=== PATIENT | female | born 1955 | race Caucasian/White ===

== ENCOUNTER 2021-01-19 12:05 | Observation (INO) ==
[2021-01-19] MEDS ORDERED: 0.9 % Sodium Chloride 1,000 ML IV ONE (13:33)
[2021-01-19 14:07] LABS: Monocytes % 12.4 %; Red Cell Distribution Width 13.4 % (11.5-14.5)
[2021-01-19 14:09] LABS: Basophils # 0.1 K/mcL (0.0-0.2); Basophils % 0.7 %; Eosinophils # 0.2 K/mcL (0.0-0.6); Eosinophils % 3.2 %; Hematocrit 41.4 % (35.3-44.9); Hemoglobin 13.7 g/dL (11.5-15.4); Immature Granulocytes % 0.3 % (0-4); Immature Platelets 4.8 % (1.1-6.1); Lymphocytes # 1.3 K/mcL (0.6-4.6); Lymphocytes % 18.9 %; Mean Corpuscular HGB Conc 33.1 g/dL (31.6-35.5); Mean Corpuscular Hemoglobin 30.4 pg (28.0-33.3); Mean Platelet Volume 9.9 fL (9.4-12.4); Monocytes # 0.9 K/mcL (0.0-1.3); Platelet Count 106 K/mcL (140-400); Segmented Neutrophils % 64.5 %; White Blood Count 6.9 K/mcL (4.3-11.1)
[2021-01-19 14:14] LABS: Neutrophils # 4.5 K/mcL (1.6-8.9)
[2021-01-19 14:26] LABS: Alanine Aminotransferase 65 Units/L (7-52); Albumin 3.7 g/dL (3.5-5.7); Albumin/Globulin Ratio 1.4 (1.1-2.2); Alkaline Phosphatase 57 Units/L (34-104); Aspartate Amino Transferase 78 Units/L (13-39); BUN/Creatinine Ratio 24 (6-26); Bilirubin,Total 0.9 mg/dL (0.3-1.0); Blood Urea Nitrogen 18 mg/dL (8-23); Calcium 9.2 mg/dL (8.6-10.3); Carbon Dioxide 27 mEq/L (23-29); Chloride 105 mEq/L (98-107); Globulin 2.7 g/dL (2.4-3.5); Glucose 79 mg/dL (70-105); Osmolality,Calculated 289 (280-300); Potassium 3.2 mEq/L (3.5-5.1); Sodium 139 mEq/L (136-145); Total Protein 6.4 g/dL (6.4-8.9); eGFR For African Americans > 60 (> 60); eGFR For Non-African Americans > 60 (> 60)
[2021-01-19] MEDS ORDERED: Ondansetron ODT 4 MG TAB.RAPDIS SL PRN (21:06)
[2021-01-19] MEDS ORDERED: Acetaminophen 325 MG TABLET PO PRN (21:06)
[2021-01-19] MEDS ORDERED: Naloxone 0.4 MG/ML INJ IVP PRN (21:06)
[2021-01-19] MEDS ORDERED: Melatonin 3 MG TABLET PO PRN (21:06)
[2021-01-19] MEDS ORDERED: D5% in Water 1,000 ML IVC PRN (21:11)
[2021-01-19] MEDS ORDERED: *HR* Dextrose 50 % in Water (Vial) 50 ML VIAL IVP PRN (21:11)
[2021-01-19] MEDS ORDERED: Dextrose Gel 15 GM/37.5 ML TUBE PO PRN ×2 (21:11)
[2021-01-19] MEDS ORDERED: Isovue-370 500 ML BOTTLE IVP ONE ×3 (21:17→21:22)
[2021-01-19] MEDS: Insulin LISPRO 300 UNITS/3 ML VIAL SUBQ SCH (22:00)
[2021-01-19] MEDS ORDERED: *HR* LORazepam 2 MG/ML VIAL IVP ONE (22:48)
[2021-01-20] MEDS ORDERED: Cefepime HCl 2,000 MG in Water for inj. (sterile) 20 ML IVP SCH (06:00)
[2021-01-20] MEDS: Doxycycline 100 MG in 0.9 % Sodium Chloride Mini Bag 100 ML IVPB SCH ×2 (06:18→16:38)
[2021-01-20] MEDS: Insulin LISPRO 300 UNITS/3 ML VIAL SUBQ SCH ×3 (09:27→16:41)
[2021-01-20] MEDS: *HR* Heparin 5,000 UNIT/ML VIAL SQ SCH ×3 (09:38→20:36)
[2021-01-20] MEDS ORDERED: Fluconazole 40 MG/ML UDC PO ONE (09:52)
[2021-01-20] MEDS: Nystatin Cream 15 GM TUBE TP SCH ×2 (10:26→20:42)
[2021-01-20] MEDS ORDERED: Potassium Chloride Elixir 20 MEQ/15 ML UDC PO ONE (13:47)
[2021-01-20] MEDS: Cefepime HCl 2,000 MG in Water for inj. (sterile) 20 ML IVP SCH (15:15)
[2021-01-20] MEDS: Budesonide/Formoterol 80/4.5 1 PUFF INH IH SCH ×2 (15:38→20:17)
[2021-01-20 15:58] LABS: Basophils # 0.1 K/mcL (0.0-0.2); Basophils % 0.8 %; Eosinophils # 0.2 K/mcL (0.0-0.6); Eosinophils % 3.4 %; Hematocrit 43.5 % (35.3-44.9); Hemoglobin 14.3 g/dL (11.5-15.4); Immature Granulocytes % 0.5 % (0-4); Immature Platelets 4.3 % (1.1-6.1); Lymphocytes # 1.4 K/mcL (0.6-4.6); Lymphocytes % 22.5 %; Mean Corpuscular HGB Conc 32.9 g/dL (31.6-35.5); Mean Corpuscular Hemoglobin 30.2 pg (28.0-33.3); Mean Corpuscular Volume 91.8 fL (83.0-100.0); Monocytes # 0.8 K/mcL (0.0-1.3); Monocytes % 11.7 %; Neutrophils # 3.9 K/mcL (1.6-8.9); Platelet Count 96 K/mcL (140-400); Red Blood Count 4.74 M/mcL (3.82-4.97); Red Cell Distribution Width 13.6 % (11.5-14.5); Segmented Neutrophils % 61.1 %; White Blood Count 6.4 K/mcL (4.3-11.1)
[2021-01-20 16:16] LABS: Alanine Aminotransferase 88 Units/L (7-52); Albumin 3.8 g/dL (3.5-5.7); Albumin/Globulin Ratio 1.3 (1.1-2.2); Alkaline Phosphatase 62 Units/L (34-104); Aspartate Amino Transferase 102 Units/L (13-39); BUN/Creatinine Ratio 22 (6-26); Bilirubin,Total 1.1 mg/dL (0.3-1.0); Blood Urea Nitrogen 17 mg/dL (8-23); Calcium 9.2 mg/dL (8.6-10.3); Carbon Dioxide 23 mEq/L (23-29); Chloride 107 mEq/L (98-107); Globulin 2.9 g/dL (2.4-3.5); Glucose 140 mg/dL (70-105); Osmolality,Calculated 292 (280-300); Potassium 3.5 mEq/L (3.5-5.1); Sodium 139 mEq/L (136-145); Total Protein 6.7 g/dL (6.4-8.9); eGFR For African Americans > 60 (> 60); eGFR For Non-African Americans > 60 (> 60)
[2021-01-20] MEDS ORDERED: ACETAMINOPHEN 160 MG/5 ML PO PRN (16:35)
[2021-01-20] MEDS ORDERED: Furosemide 20 MG TABLET PO SCH (16:45)
[2021-01-20] MEDS ORDERED: Aspirin Enteric Coated 81 MG Tablet PO SCH (16:45)
[2021-01-20] MEDS: hydroCHLOROthiazide 25 MG TABLET PO SCH (17:26)
[2021-01-20] MEDS: Spironolactone 12.5 MG TABLET PO SCH (17:27)
[2021-01-20] MEDS: *HR* LORazepam 1 MG TABLET PO SCH (20:42)
[2021-01-21] MEDS: Cefepime HCl 2,000 MG in Water for inj. (sterile) 20 ML IVP SCH (03:33)
[2021-01-21 05:46] LABS: Mean Corpuscular Volume 91.5 fL (83.0-100.0)
[2021-01-21 05:47] LABS: Hematocrit 38.9 % (35.3-44.9); Hemoglobin 13.3 g/dL (11.5-15.4); Mean Corpuscular HGB Conc 34.2 g/dL (31.6-35.5); Mean Corpuscular Hemoglobin 31.3 pg (28.0-33.3); Mean Platelet Volume 10.7 fL (9.4-12.4); Red Blood Count 4.25 M/mcL (3.82-4.97); Red Cell Distribution Width 13.8 % (11.5-14.5); White Blood Count 6.2 K/mcL (4.3-11.1)
[2021-01-21 05:54] LABS: Alanine Aminotransferase 89 Units/L (7-52); Albumin 3.4 g/dL (3.5-5.7); Albumin/Globulin Ratio 1.3 (1.1-2.2); Alkaline Phosphatase 55 Units/L (34-104); Aspartate Amino Transferase 103 Units/L (13-39); BUN/Creatinine Ratio 19 (6-26); Bilirubin,Total 1.2 mg/dL (0.3-1.0); Blood Urea Nitrogen 16 mg/dL (8-23); Calcium 8.7 mg/dL (8.6-10.3); Carbon Dioxide 21 mEq/L (23-29); Chloride 109 mEq/L (98-107); Glucose 91 mg/dL (70-105); Osmolality,Calculated 289 (280-300); Potassium 3.5 mEq/L (3.5-5.1); Sodium 139 mEq/L (136-145); Total Protein 6.1 g/dL (6.4-8.9); eGFR For African Americans > 60 (> 60); eGFR For Non-African Americans > 60 (> 60)
[2021-01-21 05:55] LABS: Globulin 2.7 g/dL (2.4-3.5)
[2021-01-21] MEDS: *HR* Heparin 5,000 UNIT/ML VIAL SQ SCH (05:55)
[2021-01-21] MEDS: Doxycycline 100 MG in 0.9 % Sodium Chloride Mini Bag 100 ML IVPB SCH (05:55)
[2021-01-21] MEDS: Budesonide/Formoterol 80/4.5 1 PUFF INH IH SCH (08:06)
[2021-01-21] MEDS: Insulin LISPRO 300 UNITS/3 ML VIAL SUBQ SCH ×2 (08:06→11:55)
[2021-01-21] MEDS: *HR* LORazepam 1 MG TABLET PO SCH (08:27)
[2021-01-21] MEDS: Spironolactone 12.5 MG TABLET PO SCH (08:28)
[2021-01-21] MEDS: hydroCHLOROthiazide 25 MG TABLET PO SCH (08:28)
[2021-01-21] MEDS: Nystatin Cream 15 GM TUBE TP SCH (08:29)
[2021-01-21] MEDS ORDERED: Fluconazole 40 MG/ML UDC PO SCH (09:00)
[2021-01-21] MEDS ORDERED: Aspirin 81 MG TAB.CHEW PO SCH (09:00)
[2021-01-21 10:18] VITALS: O2SAT 98
[2021-01-21 10:23] VITALS: BP 122/66; PULSE 52; TEMP 98.4
== END 2021-01-21 13:04 | disposition home or self-care (01) ==
LOC: EMEROOARM 12:05 → 3ANU 12:05 → SUATTDRO 16:57 → 3ANU 17:49
PROVIDERS: ADMIT Pharmacist; ATTEND Internal Medicine